=== PATIENT | male | born 1965 | race Hispanic/Latino ===

== ENCOUNTER 2024-10-18 08:43 | Emergency (ER) | payer OTHER ==
[~2024-10-18] VITALS: Ht 162.6 cm; Wt 90.7 kg
[2024-10-18] MEDS: ketOROlac 15MG/ML VIAL (15MG/ML) IM ONE (09:03)
--- NOTE | 2024-10-18 09:05 | ERN ---
General Chief Complaint: Back Pain or Injury Stated Complaint: BACK Time Seen by MD: 08:52 History of Present Illness Initial Comments Otherwise healthy 59-year-old male presents for fall. Patient was on an incline a ramp at about 4 ft, the ramp fell to the ground about 4 ft. He landed on his feet, but in his knees gave out and he fell to his knees and then to his side. He reports bilateral knee pain and some paraspinal pain to the lumbar area. He is ambulatory. No neurologic deficits. Allergies: Coded Allergies: oseltamivir (Unverified Allergy, Unknown, 10/18/24) Past Medical History Past Medical History: Hypertension Past Surgical History: None ROS Dictation CONSTITUTIONAL: No chills, no fever, no weakness, no diaphoresis, no malaise. HEAD/FACE: No signs of trauma. EENT: No eye pain, no blurred vision, no tearing, no double vision, no ear pain, no ear discharge, no nose pain, no nasal congestion, no throat pain, no throat swelling, no mouth pain. RESPIRATORY: No cough, no orthopnea, no SOB, no stridor, no wheezing. CARDIOVASCULAR: No chest pain, no edema, no palpitations, no syncope. GASTROINTESTINAL/ABDOMINAL: No abdominal pain, no constipation, no diarrhea, no nausea, no vomiting. GENITOURINARY: No abnormal discharge, no dysuria, no frequent urination, no hematuria. No complaints of pain in the genitals. MUSCULOSKELETAL: Bilateral knee pain, lower back pain INTEGUMENTARY: No change in color, no change in hair/nails, no dryness, no lesion, no lumps, no rash. NEUROLOGICAL/PSYCH: No anxiety, not depressed, no emotional problem, no headache, no numbness, no pre-existing deficit, no history of seizures, no tremors, no weakness. HEMATOLOGIC/LYMPHATIC: Not anemic, no history of blood clots, no apparent bleeding, no bruising, glands not swollen. All Systems Negative, Except as Noted. Physical Exam Physical Exam Dictation VITAL SIGNS: Reviewed. GENERAL APPEARANCE: Alert, oriented x3, no acute distress. HEAD AND FACE: Non-traumatic. EYES: PERRL, pink conjunctivas, eyelid no trauma, anterior chamber clear. EARS: Pinnas intact and no signs of trauma or erythema. Ear canals clear and no discharge. TMs no erythema. NOSE: No discharge, no bleeding. OROPHARYNX: Mouth normal, teeth no caries, tongue pink. Pharynx clear, no erythema. Tonsils no exudates, no abscesses noted. Mucous membrane moist. NECK: Supple, non-tender, no thyromegaly, no masses, no JVD, no bruits. BREAST: Deferred. CHEST: No tenderness, no crepitus, no paradoxical movement, no retractions. LUNGS: Clear, well-ventilated, symmetric, no rales, no wheezing, no rhonchi, no stridor, good breath sounds bilaterally. HEART: Regular rate, regular rhythm, no murmur, no gallops. VASCULAR: No peripheral edema. ABDOMEN: Soft, positive bowel sounds, nondistended, no guarding, nontender, no rebound, no masses no hepatomegaly, no splenomegaly, no May's sign, no hernias. RECTAL: Deferred. GENITAL: Deferred. NEUROLOGICAL: Normal speech, gross motor function intact, gross sensory function intact. MUSCULOSKELETAL: Neck nontender, full range of motion, back nontender, full range of motion. EXTREMITIES: Nontender, full range of motion. SKIN: Color pink, dry, no turgor, no rash, no lacerations, no abrasions, no contusions. LYMPHATICS: Deferred. MDM CC: Bilateral knee and back pain status post fall Historian: Patient comorbidities: None Limitations by social determinants of health: None Differential diagnosis: Musculoskeletal pain, fracture Clinical exam is unremarkable. The are no signs of significant neurologic disorder or vascular concerns. The lumbar spine x-ray per my independent interpretation shows no signs of fractures or abnormalities. Independently interpreted and reviewed by me. The bilateral knee x-rays per my independent interpretation shows no acute fractures or major abnormalities. Independently interpreted by me. Patient received IM Toradol in the ER. We will discharged with NSAID, muscle relaxers, and patches for musculoskeletal type pain. Patient agrees with the plan. ED Course Orders Procedure Category Date Status Time Knee 3 Vw Bilateral RAD 10/18/24 Taken 08:57 Lumbar Spine 2-3vws RAD 10/18/24 Taken 08:57 Ketorolac PHA 10/18/24 Complete Tromethamine 15mg/Ml 09:00 Current Medications Medications (Trade) Dose Ordered Sig/Bryce Route PRN Reason Start Time Stop Time Status Last Admin Dose Admin Ketorolac Tromethamine (toRADol) 15 mg ONCE ONCE IM 10/18/24 09:00 10/18/24 09:01 DC 10/18/24 09:03 Vital Signs Date Time Temp Pulse Resp B/P (MAP) Pulse Ox O2 Delivery O2 Flow Rate FiO2 10/18/24 09:07 98.8 89 18 141/63 99 Room Air* 0 21 10/18/24 08:44 98.2 92 20 180/102 99 Room Air DX & DISP Disposition: Discharge Departure Impression: Primary Impression: Fall Additional Impressions: Musculoskeletal pain, Bilateral knee pain Condition: Stable Scripts Lidocaine (Lidocaine Pain Relief) 4 % Adh..patch 1 EACH TP BID PRN for PAIN for 10 Days, #10 ADH.PATCH Prov: DEDE FINN DO 10/18/24 Meloxicam (Meloxicam) 15 Mg Tablet 15 MG PO DAILY PRN for PAIN for 10 Days, #10 TAB Prov: DEDE FINN DO 10/18/24 Additional Instructions: The x-rays did not show any fractures. Your symptoms are consistent with musculoskeletal type pain. I have prescribed meloxicam, which is an anti-inflammatory pain medication. Take this once per day as needed for the next 7-10 days. Do not mix this medication with ibuprofen or naproxen. I have prescribed lidocaine patches to use for your back pain as needed. You can also take 1000 mg of Tylenol up to 4 times a day as needed for pain. I recommend that you follow up with your primary doctor next week if you continue with symptoms. Please return to the emergency department as needed. DEDE FINN DO Oct 18, 2024 09:05
--- NOTE | 2024-10-18 10:28 | HMCIMG ---
LUMBAR SPINE 2-3VWS HISTORY: Back pain COMPARISON: None FINDINGS: 3 images of lumbar spine were obtained. Disc space narrowing is seen at the L5-S1 level. Anterior osteophytes are seen. There is straightening of normal lordotic curvature which may be related to muscle spasm or positioning. No loss of vertebral height is seen. No fracture or dislocation is seen. Degenerative changes are seen. IMPRESSION: 1. No fracture is seen. DJD.
[2024-10-18] MEDS ORDERED: LIDO1ADH71 TP (10:30)
[2024-10-18] MEDS ORDERED: MELO-108 PO (10:30)
[2024-10-18 10:33] VITALS: BP 135/61; PULSE 84; RESP 18; TEMP 98.8; O2SAT 99
--- NOTE | 2024-10-18 11:33 | HMCIMG ---
KNEE 3 VW BILATERAL REASON: lower back pain, fall. COMPARISON: None TECHNIQUE: 6 images of bilateral knees were obtained. FINDINGS: Medial femorotibial joint space narrowing and patellofemoral joint space narrowing are seen bilaterally. There is no acute displaced fracture or dislocation. IMPRESSION: Findings as described above.
== END 2024-10-18 10:35 | disposition home or self-care (01) ==
LOC: EDH 08:43
DX: M54.50 Low back pain, unspecified (principal); M25.562 Pain in left knee; M25.561 Pain in right knee; I10 Essential (primary) hypertension; W18.39XA Other fall on same level, initial encounter; Y93.89 Activity, other specified; Y92.89 Other specified places as the place of occurrence of the external cause; Y99.8 Other external cause status
CPT/HCPCS: 99284; 73562; 72100; 96372; J1885

== ENCOUNTER → 2025-06-03 | Outpatient (CLI) | payer OTHER ==
[~2025-06-03] MED LIST: LIDO1ADH71 TP; MELO-108 PO
--- NOTE | 2025-06-05 20:56 | HMCIMG ---
EXAM: MR Lumbar Spine Without Intravenous Contrast. CLINICAL HISTORY: Pain in the right leg. TECHNIQUE: Magnetic resonance images of the lumbar spine in multiple planes. CONTRAST: None. COMPARISON: Prior lumbar spine radiograph dated 18 October 2024. FINDINGS: For this examination, spinal levels were labeled assuming five [id number], lumbar-type vertebrae, with the inferior labeled L5. No acute fracture. Normal lordotic curvature. Normal vertebral body height and marrow signal intensity. Multilevel disc desiccation from L2-L3, through L5-S1 level with multilevel severe degenerative facet arthropathy and ligamentum flavum hypertrophy. Hemangioma in the L1 vertebra [22 mm. Conus medullaris terminates at the T12-L1 level. No abnormal epidural masses. The surrounding soft tissues are unremarkable. Individual spinal levels are described as follows: T12-L1: No disc bulge or herniation. No neural foraminal, lateral recess, or spinal canal stenosis. L1-L2: No disc bulge or herniation. No neural foraminal, lateral recess, or spinal canal stenosis. A 22 mm hemangioma in the L1 vertebra. L2-L3: Mild disc desiccation. Circumferential 5 mm disc bulge with moderate bilateral facet arthropathy, ligamentum flavum hypertrophy. Moderate narrowing of the right neural foramina and bilateral lateral recesses. Abutment of the right exiting L2 nerve root and bilateral traversing L3 nerve root. Mild spinal canal stenosis. L3-L4: Disc desiccation. Broad-based circumferential 4 mm disc osteophyte complex bulge with moderate bilateral facet arthropathy and ligamentum flavum hypertrophy. Moderate narrowing of the bilateral neural foramina and mild narrowing of the bilateral lateral recesses. Abutment of the bilateral exiting L3 nerve root and right traversing L4 nerve root. Mild spinal canal stenosis. L4-L5: Disc desiccation with degenerative reduction in disc space. Broad-based circumferential 4.5 mm disc osteophyte complex bulge. Moderate bilateral facet arthropathy and ligamentum flavum hypertrophy. Moderate narrowing of the bilateral neural foramina and lateral recesses, abutment of the bilateral exiting L4 and traversing L5 nerve roots. Moderate spinal canal stenosis. L5-S1: Disc desiccation with degenerative reduction in disc space. Type I Modic endplate changes. Broad-based circumferential 4 mm disc osteophyte complex bulge. Moderate to severe narrowing of the right neural foramina and moderate narrowing of the left neural foramina. Moderate narrowing of the right lateral recess. Abutment of bilateral exiting L5 and right traversing S1 nerve root. IMPRESSION: No evidence of acute fracture or subluxation. Multilevel disc desiccation and disc bulges from L2-L3, through L5-S1 level, with multilevel degenerative facet arthropathy and moderate to severe degenerative changes as described above, most prominent at L4-L5 level. Compared to a prior study again identified multilevel severe degenerative changes in the lumbar spine. /[place]
== END | disposition home or self-care (01) ==
LOC: RAH 14:57
PROVIDERS: ATTEND Internal Medicine
DX: M51.379 Other intervertebral disc degeneration, lumbosacral region without mention of lumbar back pain or lower extremity pain (principal); M47.817 Spondylosis without myelopathy or radiculopathy, lumbosacral region; M79.604 Pain in right leg; D18.09 Hemangioma of other sites; M25.78 Osteophyte, vertebrae; M48.07 Spinal stenosis, lumbosacral region
CPT/HCPCS: 72148